=== PATIENT | female | born 1965 | race Caucasian/White ===

== ENCOUNTER 2021-02-08 18:43 | Emergency (ER) | payer OTHER ==
[~2021-02-08] VITALS: Ht 170.2 cm; Wt 105.2 kg
[2021-02-08 22:44] VITALS: BP 140/78
== END 2021-02-08 22:45 | disposition home or self-care (01) ==
LOC: M.ERS 18:43
DX: S60.222A Contusion of left hand, initial encounter (principal); Z88.6 Allergy status to analgesic agent; Z88.8 Allergy status to other drugs, medicaments and biological substances; X58.XXXA Exposure to other specified factors, initial encounter; Y93.89 Activity, other specified; Y92.89 Other specified places as the place of occurrence of the external cause; Y99.8 Other external cause status